=== PATIENT | male | born 1980 | race Caucasian/White ===

== ENCOUNTER 2023-12-14 11:59 | Emergency (ER) | payer OTHER ==
[~2023-12-14] VITALS: Ht 175.3 cm; Wt 77.1 kg
[2023-12-14 12:02] VITALS: BP 104/79; PULSE 89; RESP 18; TEMP 97.5; O2SAT 97
[2023-12-14] MEDS: KETOROLAC 30 MG/ML VIAL IM ONE (12:38)
[2023-12-14 12:42] VITALS: O2SAT 97
[2023-12-14 14:41] VITALS: O2SAT 97
[2023-12-14] MEDS: HYDROcodone/APAP 5/325 MG 1 TAB TAB PO ONE (14:43)
[2023-12-14 15:45] VITALS: BP 99/67; PULSE 77; RESP 18; TEMP 98.3
[2023-12-14] MEDS ORDERED: ACET-8905 PO (16:43)
[2023-12-14] MEDS ORDERED: IBUP-2213 PO (16:44)
[2023-12-14 16:55] VITALS: O2SAT 97
== END 2023-12-14 17:10 | disposition home or self-care (01) ==
LOC: MED 11:59
DX: S82.142A Displaced bicondylar fracture of left tibia, initial encounter for closed fracture (principal); V86.95XA Unspecified occupant of 3- or 4- wheeled all-terrain vehicle (ATV) injured in nontraffic accident, initial encounter; Y93.89 Activity, other specified; Y92.89 Other specified places as the place of occurrence of the external cause; Y99.0 Civilian activity done for income or pay
CPT/HCPCS: 29505; 73562; 73700; 96372; 99285; J1885; Q0092